=== PATIENT | female | born 1965 | race African-American/Black ===

== ENCOUNTER 2018-05-28 01:07 | Inpatient (IN) | payer MEDICARE, MEDICAID ==
[~2018-05-28] VITALS: Ht 162.6 cm; Wt 72.6 kg
[2018-05-28 02:15] LABS: EOSINOPHILS % 1.1 % (0.0-5.0); HEMATOCRIT. 48.3 % (36.0-48.0); HEMOGLOBIN. 15.9 g/dL (12.0-16.0); LYMPHOCYTES % 23.7 % (20.0-50.0); MEAN CORPUSCULAR HEMOGLOBIN 30.3 pg (28.0-32.0); MEAN PLATELET VOLUME 10.2 fl (7.4-10.4); MONOCYTES % 8.6 % (2.0-8.0); NEUTROPHILS % 65.6 % (40.0-76.0); PLATELET 265 x1000/uL (130-400); RED BLOOD CELL COUNT 5.26 mill/uL (4.2-5.4); RED CELL DISTRIBUTION WIDTH 14.2 % (11.6-14.6)
[2018-05-28 02:22] LABS: CHLORIDE 109 mEq/L (98-107)
[2018-05-28 06:13] LABS: CLARITY URINE CLEAR (CLEAR); COLOR URINE YELLOW (YELLOW); KETONES URINE NEGATIVE (NEGATIVE); LEUKOCYTE ESTERASE URINE NEGATIVE (NEGATIVE); NITRITE URINE NEGATIVE (NEGATIVE); OCCULT BLOOD URINE NEGATIVE (NEGATIVE); PROTEIN URINE NEGATIVE (NEGATIVE); SPECIFIC GRAVITY URINE 1.021 (1.005-1.030); UROBILINOGEN URINE 0.2 E.U./dL (0.2-1.0)
[2018-05-28] MEDS ORDERED: NITROGLYCERIN 0.4MG TABLET SL SL PRN (12:00)
[2018-05-28] MEDS ORDERED: ZOLPIDEM TARTRATE 5MG TABLET PO PRN (12:00)
[2018-05-28] MEDS ORDERED: DOCUSATE SODIUM 100MG CAPSULE PO PRN (12:00)
[2018-05-28] MEDS ORDERED: MORPHINE SULFATE 4 MG/ML CPJ (NOT FOR IM USE) IV PRN (12:00)
[2018-05-28] MEDS ORDERED: LORAZEPAM 0.5MG TABLET PO PRN (12:00)
[2018-05-28] MEDS ORDERED: CLONIDINE 0.1MG TABLET PO PRN (12:00)
[2018-05-28] MEDS ORDERED: ONDANSETRON HCL 4MG/2ML INJ IV PRN (12:00)
[2018-05-28] MEDS ORDERED: NA PHOS,M-B/NA PHOS,DI-BA ENEMA 118ML PR PRN (12:00)
[2018-05-28] MEDS ORDERED: GUAIFENESIN 200MG/10ML SUGAR FREE UDC PO PRN (12:00)
[2018-05-28] MEDS ORDERED: MAGNESIUM/ALUMINUM HYDROXIDE/SIMETHICONE 30ML UDC PO PRN (12:00)
[2018-05-28] MEDS ORDERED: IPRATROPIUM/ALBUTEROL 0.5-3(2.5)MG/3ML NEB INH PRN (12:00)
[2018-05-28] MEDS: METOPROLOL TARTRATE 25MG TABLET PO SCH ×2 (13:30→20:27)
[2018-05-28 13:52] VITALS: BP 169/99
[2018-05-28 14:15] VITALS: BP 169/99
[2018-05-28] MEDS: ENOXAPARIN 40MG/0.4ML SYR SUBCUT SCH ×2 (15:00→16:24)
[2018-05-28 15:37] LABS: CREATINE KINASE 183 IU/L (26-192); CREATINE KINASE MB FRACTION 2.1 ng/mL (0.5-3.6)
[2018-05-28 16:00] VITALS: BP 148/90
[2018-05-28 18:05] LABS: *AMPHETAMINES SCREEN URINE NEGATIVE (NEGATIVE); CANNABINOID URINE SCREEN NEGATIVE (NEGATIVE); METHADONE URINE SCREEN NEGATIVE (NEGATIVE); OPIATES URINE SCREEN NEGATIVE (NEGATIVE); PHENCYCLIDINE URINE SCREEN NEGATIVE (NEGATIVE)
[2018-05-28 18:06] LABS: *BARBITURATES SCREEN URINE NEGATIVE (NEGATIVE); *BENZODIAZEPINES SCREEN URINE NEGATIVE (NEGATIVE); *COCAINE SCREEN URINE NEGATIVE (NEGATIVE)
[2018-05-28 20:00] VITALS: BP 128/70
[2018-05-28] MEDS: FAMOTIDINE 20MG TABLET PO SCH (20:23)
[2018-05-28] MEDS: LISINOPRIL 20MG TABLET PO SCH (20:26)
[2018-05-29] VITALS (7 sets, daily range): BP systolic 117–166; BP diastolic 72–98
[2018-05-29 00:51] LABS: CREATINE KINASE 136 IU/L (26-192)
[2018-05-29 00:52] LABS: CREATINE KINASE MB FRACTION 1.2 ng/mL (0.5-3.6)
[2018-05-29] MEDS: FAMOTIDINE 20MG TABLET PO SCH ×2 (09:08→21:05)
[2018-05-29] MEDS: LISINOPRIL 20MG TABLET PO SCH ×2 (09:08→21:05)
[2018-05-29] MEDS: ASPIRIN 325MG EC TABLET PO SCH (09:08)
[2018-05-29] MEDS: METOPROLOL TARTRATE 25MG TABLET PO SCH ×2 (09:08→21:00)
[2018-05-29] MEDS: ENOXAPARIN 40MG/0.4ML SYR SUBCUT SCH (09:09)
[2018-05-29] MEDS: ACETAMINOPHEN 325MG TABLET PO PRN (10:36)
[2018-05-29] MEDS: TRAMADOL 50MG TABLET PO PRN (15:50)
[2018-05-29] MEDS ORDERED: INFLUENZA VIRUS VACCINE(AFLURIA) 0.5ML SYR IM ONE (16:00)
[2018-05-29 16:22] LABS: CREATINE KINASE 116 IU/L (26-192)
[2018-05-29 16:23] LABS: CREATINE KINASE MB FRACTION 1.3 ng/mL (0.5-3.6)
[2018-05-30 03:50] VITALS: BP 115/66
[2018-05-30 07:59] LABS: CREATINE KINASE 80 IU/L (26-192)
[2018-05-30 08:00] VITALS: BP 144/86
[2018-05-30] MEDS: FAMOTIDINE 20MG TABLET PO SCH ×2 (09:02→20:30)
[2018-05-30] MEDS: LISINOPRIL 20MG TABLET PO SCH ×2 (09:02→20:30)
[2018-05-30] MEDS: ASPIRIN 325MG EC TABLET PO SCH (09:02)
[2018-05-30] MEDS: METOPROLOL TARTRATE 25MG TABLET PO SCH ×2 (09:02→20:30)
[2018-05-30] MEDS: ENOXAPARIN 40MG/0.4ML SYR SUBCUT SCH (09:03)
[2018-05-30] MEDS: TRAMADOL 50MG TABLET PO PRN (11:39)
[2018-05-30 12:00] VITALS: BP 131/57
[2018-05-30 16:00] VITALS: BP 151/91
[2018-05-30] MEDS: ACETAMINOPHEN 325MG TABLET PO PRN (18:05)
[2018-05-30 20:00] VITALS: BP 149/87
[2018-05-30 22:28] VITALS: BP 161/77
[2018-05-31] VITALS: BP_SYST 133; BP_SYST 137; BP_SYST 154; BP_DIAS 69; BP_DIAS 81; BP_DIAS 88
[2018-05-31 04:00] VITALS: BP 136/85
[2018-05-31 08:00] VITALS: BP_SYST 147; BP_SYST 150; BP_SYST 155; BP_DIAS 85; BP_DIAS 86; BP_DIAS 93
[2018-05-31] MEDS: ENOXAPARIN 40MG/0.4ML SYR SUBCUT SCH (09:51)
[2018-05-31] MEDS: FAMOTIDINE 20MG TABLET PO SCH (09:56)
[2018-05-31] MEDS: ASPIRIN 325MG EC TABLET PO SCH (09:56)
[2018-05-31] MEDS: LISINOPRIL 20MG TABLET PO SCH (09:56)
[2018-05-31] MEDS: METOPROLOL TARTRATE 25MG TABLET PO SCH (09:57)
[2018-05-31 12:00] VITALS: BP 117/65
[2018-05-31] MEDS ORDERED: INFLUENZA VIRUS VACCINE(AFLURIA) 0.5ML SYR IM ONE (14:00)
[2018-05-31 15:04] VITALS: BP 140/77
[2018-05-31 16:00] VITALS: BP 159/95
[2018-05-31] MEDS: ACETAMINOPHEN 325MG TABLET PO PRN (16:33)
== END 2018-05-31 17:20 | disposition home or self-care (01) | DRG 312 ==
LOC: ER 01:07 → 5WST 05:03 → EDBEDREQ 05:06 → EDBEDREQTM 05:06 → SUPCPDRO 11:53 → ENRESERV 12:59
PROVIDERS: ADMIT Internal Medicine; ATTEND Internal Medicine
PROC: 4A00X4Z Measurement of Central Nervous Electrical Activity, External Approach (ICD-10-PCS; principal; 2018-05-30)
DX: R55 Syncope and collapse (principal); Q04.0 Congenital malformations of corpus callosum; I10 Essential (primary) hypertension; H91.3 Deaf nonspeaking, not elsewhere classified; M54.2 Cervicalgia; G31.9 Degenerative disease of nervous system, unspecified; E78.00 Pure hypercholesterolemia, unspecified; I11.9 Hypertensive heart disease without heart failure; Z91.14 Patient's other noncompliance with medication regimen; Z79.899 Other long term (current) drug therapy; Z91.11 Patient's noncompliance with dietary regimen; Z91.19 Patient's noncompliance with other medical treatment and regimen
CPT/HCPCS: 36415; 70544; 70551; 71045; 72141; 80061; 80305; 82550; 82553; 83036; 83880; 84439; 84443; 84484; 85379; 90686; 93005; 93306; 93880; 93970; 97162; 97165; 99285; G0482; J1650